=== PATIENT | female | born 1970 | race Caucasian/White ===

== ENCOUNTER → 2017-01-10 | Outpatient (CLI) | payer BC | LOC: MW.CHIM 08:07 | PROVIDERS: ATTEND Internal Medicine | DX: E78.5 Hyperlipidemia, unspecified (principal); D64.9 Anemia, unspecified | CPT/HCPCS: 36415; 80061; 83540; 85025 ==

== ENCOUNTER 2018-12-14 16:04 | Inpatient (IN) | payer BC ==
[2018-12-14] MEDS ORDERED: Sodium Chloride 0.9% 10 ML Syringe FLUSH PRN (16:13)
[2018-12-14] MEDS ORDERED: Sodium Chloride 0.9% 1,000 ML IV ONE (16:13)
[2018-12-14] MEDS ORDERED: Sodium Chloride 0.9% 2.5 ML Syringe FLUSH PRN (16:13)
--- NOTE | 2018-12-14 16:23 | EDM.PDOC ---
ED HPI GENERAL MEDICAL PROBLEM - General Chief Complaint: Abdominal Pain Stated Complaint: SENT BY DR COWAN Time Seen by Provider: 12/14/18 16:17 Source of Information: Reports: Patient History Limitations: Reports: No Limitations - History of Present Illness INITIAL COMMENTS - FREE TEXT/NARRATIVE: HISTORY AND PHYSICAL: History of present illness: Patient is a 48-year-old female who is sent over by Dr. Cowan's office for acute appendicitis. Patient has had pain since Tuesday night, she saw Dr. Cowan yesterday and had labs and was scheduled for CT scan. She states this CT scan never got done because they were too busy so she came in today for the scan. She had a minimally elevated white count at 12.6 yesterday. She states she has had low grade fevers. She denies nausea, vomiting, urinary or bowel symptoms. Past surgical history includes lap-band procedure and 2 c-sections. Past medical history of hyperlipidemia currently only taking a statin. She has taken some tylenol for her pain. She last ate last night, has been drinking water throughout the day today. Review of systems: As per history of present illness and below otherwise all systems reviewed and negative. Past medical history: As per history of present illness and as reviewed below otherwise noncontributory. Surgical history: As per history of present illness and as reviewed below otherwise noncontributory. Social history: No reported history of drug or alcohol abuse. Family history: As per history of present illness and as reviewed below otherwise noncontributory. Physical exam: General: Patient sitting comfortably in no acute distress and nontoxic appearing HEENT: Atraumatic, normocephalic, pupils reactive, negative for conjunctival pallor or scleral icterus, mucous membranes moist, throat clear, neck supple, nontender, trachea midline. No meningeal signs. Lungs: Clear to auscultation, breath sounds equal bilaterally, chest nontender. Heart: S1S2, regular, negative for clicks, rubs, or overt murmur. Abdomen: RLQ tenderness to palpation, positive Mcburney's and psoas sign. Soft, nondistended. Negative for masses or hepatosplenomegaly. Negative for costovertebral tenderness. No rigidity, rebound, guarding. Pelvis: Stable nontender. Genitourinary: Deferred. Rectal: Deferred. Extremities: Atraumatic, negative for cords or calf pain. Neurovascular unremarkable. Neuro: Awake, alert, oriented. Cranial nerves II through XII unremarkable. Cerebellum unremarkable. Motor and sensory unremarkable throughout. Exam nonfocal. Notes: Diagnostics: CBC, CMP Therapeutics: 1L Normal Saline IV Prescriptions: Impression: Acute appendicitis Plan: Discussed with Dr. Brooks, patient taken to same-day surgery. Definitive disposition and diagnosis as appropriate pending reevaluation and review of above. Right Lower Abdomen Pain Score (Numeric/FACES): 4 - Related Data Allergies Allergy/AdvReac Type Severity Reaction Status Date / Time No Known Allergies Allergy Verified 12/14/18 16:16 Home Meds: Home Meds Multivitamin [Multi-Vitamin Daily] 1 tab DAILY 12/14/18 [History] Simvastatin [Zocor] 1 tab DAILY 12/14/18 [History] ED ROS GENERAL - Review of Systems Review Of Systems: ROS reveals no pertinent complaints other than HPI. ED EXAM, GI/ABD - Physical Exam Exam: See Below (see dictation) Course - Vital Signs Last Recorded V/S: Last Vital Signs Temp 97.0 F 12/14/18 16:14 Pulse 110 H 12/14/18 16:14 Resp 18 12/14/18 16:14 BP 100/61 12/14/18 16:14 Pulse Ox 95 12/14/18 16:14 - Orders/Labs/Meds Orders: Active Orders 24 hr Category Date Time Status CBC WITH AUTO DIFF [HEME] Stat Lab 12/14/18 16:13 Ordered COMPREHENSIVE METABOLIC PN,CMP [CHEM] Stat Lab 12/14/18 16:13 Ordered Sodium Chloride 0.9% [Normal Saline] 1,000 ml Med 12/14/18 16:13 Ordered IV STAT Sodium Chloride 0.9% [Saline Flush] Med 12/14/18 16:13 Ordered 10 ml FLUSH ASDIRECTED PRN Sodium Chloride 0.9% [Saline Flush] Med 12/14/18 16:13 Ordered 2.5 ml FLUSH ASDIRECTED PRN Saline Lock Insert [OM.PC] Stat Oth 12/14/18 16:13 Ordered Medication Orders Sodium Chloride (Normal Saline) 1,000 mls @ 999 mls/hr IV STAT ONE Stop: 12/14/18 17:13 Sodium Chloride (Saline Flush) 10 ml FLUSH ASDIRECTED PRN PRN Reason: Keep Vein Open Sodium Chloride (Saline Flush) 2.5 ml FLUSH ASDIRECTED PRN PRN Reason: Keep Vein Open Meds: Medications Generic Name Dose Route Start Last Admin Trade Name Hammad PRN Reason Stop Dose Admin Sodium Chloride 1,000 mls @ 999 mls/hr 12/14/18 16:13 Normal Saline IV 12/14/18 17:13 STAT ONE Sodium Chloride 10 ml 12/14/18 16:13 Saline Flush FLUSH ASDIRECTED PRN Keep Vein Open Sodium Chloride 2.5 ml 12/14/18 16:13 Saline Flush FLUSH ASDIRECTED PRN Keep Vein Open Departure - Departure Time of Disposition: 16:37 Disposition: Still A Patient 30 Condition: Good Clinical Impression: Acute appendicitis - Discharge Information Referrals: Toby Cowan MD [Primary Care Provider] - Forms: ED Department Discharge - My Orders Last 24 Hours: My Active Orders 12/14/18 16:13 CBC WITH AUTO DIFF [HEME] Stat COMPREHENSIVE METABOLIC PN,CMP [CHEM] Stat Sodium Chloride 0.9% [Normal Saline] 1,000 ml IV STAT Sodium Chloride 0.9% [Saline Flush] 10 ml FLUSH ASDIRECTED PRN Sodium Chloride 0.9% [Saline Flush] 2.5 ml FLUSH ASDIRECTED PRN Saline Lock Insert [OM.PC] Stat - Assessment/Plan Last 24 Hours: My Active Orders 12/14/18 16:13 CBC WITH AUTO DIFF [HEME] Stat COMPREHENSIVE METABOLIC PN,CMP [CHEM] Stat Sodium Chloride 0.9% [Normal Saline] 1,000 ml IV STAT Sodium Chloride 0.9% [Saline Flush] 10 ml FLUSH ASDIRECTED PRN Sodium Chloride 0.9% [Saline Flush] 2.5 ml FLUSH ASDIRECTED PRN Saline Lock Insert [OM.PC] Stat
[2018-12-14] MEDS ORDERED: cefOXitin 2 GM in Premix Bag 1 BAG IV ONE (16:39)
[2018-12-14 16:56] LABS: CHLORIDE,CL 103 mmol/L (98-107); SODIUM,NA 138 mmol/L (136-145)
[2018-12-14] MEDS ORDERED: cefOXitin 2 GM in Sodium Chloride 0.9% 100 ML IV ONE (17:00)
--- NOTE | 2018-12-14 17:01 | PCM.SN ---
- Free Text/Narrative Note: pt seen, chart reviewed; acute appendicitis, would benefit from timely surgery; possibility of already ruptured, as pt felt better, and elevated wbc; appendectomy, lap vs open, rb dw pt re bleeding/infection/damage to nearby organ , and lap converted to open, postop course; pt voiced understanding, and proceed with surgery; [id number]
[2018-12-14] MEDS ORDERED: Bupivacaine 25%/EPINEPHrine/PF 30 ML ONE (17:12)
[2018-12-14] MEDS: Lactated Ringers 1,000 ML IV SCH ×2 (17:15→22:14)
--- NOTE | 2018-12-14 17:15 | PCM.PREANE ---
Preanesthetic Assessment - Anesthesia/Transfusion/Family Hx Family History of Anesthesia Reaction: No Transfusion History: Prior Transfusion Without Reaction - Review of Systems General: No Symptoms Pulmonary: No Symptoms Cardiovascular: No Symptoms Gastrointestinal: No Symptoms Neurological: No Symptoms Other: Reports: None - Physical Assessment NPO Status Date: 12/13/18 O2 Sat by Pulse Oximetry: 95 Respiratory Rate: 18 Vital Signs: Last Vital Signs Temp 36.1 C 12/14/18 16:14 Pulse 110 H 12/14/18 16:14 Resp 18 12/14/18 16:14 BP 100/61 12/14/18 16:14 Pulse Ox 95 12/14/18 16:14 Height: 1.6 m Weight: 128.6 kg ASA Class: 3E Mental Status: Alert & Oriented x3 Airway Class: Mallampati = 2 Dentition: Reports: Normal Dentition ROM/Head Extension: Full Lungs: Clear to Auscultation Cardiovascular: Regular Rate - Lab Values: Laboratory Last Values WBC 16.90 K/uL (4.0-11.0) H 12/14/18 16:27 RBC 4.46 M/uL (4.30-5.90) 12/14/18 16:27 Hgb 11.5 g/dL (12.0-16.0) L 12/14/18 16:27 Hct 36.9 % (36.0-46.0) 12/14/18 16:27 MCV 82.7 fL (80.0-98.0) 12/14/18 16:27 MCH 25.8 pg (27.0-32.0) L 12/14/18 16:27 MCHC 31.2 g/dL (31.0-37.0) 12/14/18 16:27 RDW Std Deviation 59.0 fl (28.0-62.0) 12/14/18 16:27 RDW Coeff of Alejandro 20 % (11.0-15.0) H 12/14/18 16:27 Plt Count 349 K/uL (150-400) 12/14/18 16:27 MPV 9.10 fL (7.40-12.00) 12/14/18 16:27 Neut % (Auto) 82.1 % (48.0-80.0) H 12/14/18 16:27 Lymph % (Auto) 9.1 % (16.0-40.0) L 12/14/18 16:27 [place] % (Auto) 7.8 % (0.0-15.0) 12/14/18 16:27 Eos % (Auto) 0.8 % (0.0-7.0) 12/14/18 16:27 Baso % (Auto) 0.2 % (0.0-1.5) 12/14/18 16:27 Neut # (Auto) 13.9 K/uL (1.4-5.7) H 12/14/18 16:27 Lymph # (Auto) 1.5 K/uL (0.6-2.4) 12/14/18 16:27 [place] # (Auto) 1.3 K/uL (0.0-0.8) H 12/14/18 16:27 Eos # (Auto) 0.1 K/uL (0.0-0.7) 12/14/18 16:27 Baso # (Auto) 0.0 K/uL (0.0-0.1) 12/14/18 16:27 Nucleated RBC % 0.0 /100WBC 12/14/18 16:27 Nucleated RBCs # 0 K/uL 12/14/18 16:27 Sodium 138 mmol/L (136-145) 12/14/18 16:27 Potassium 3.4 mmol/L (3.5-5.1) L 12/14/18 16:27 Chloride 103 mmol/L (98-107) 12/14/18 16:27 Carbon Dioxide 24.3 mmol/L (21.0-32.0) 12/14/18 16:27 BUN 8 mg/dL (7.0-18.0) 12/14/18 16:27 Creatinine 0.8 mg/dL (0.6-1.0) 12/14/18 16:27 Est Cr Clr Drug Dosing 69.59 mL/min 12/14/18 16:27 Estimated GFR (MDRD) > 60.0 ml/min 12/14/18 16:27 Glucose 125 mg/dL (74-106) H 12/14/18 16:27 Calcium 8.8 mg/dL (8.5-10.1) 12/14/18 16:27 Total Bilirubin 0.6 mg/dL (0.2-1.0) 12/14/18 16:27 AST 8 IU/L (15-37) L 12/14/18 16:27 ALT 25 IU/L (14-63) 12/14/18 16:27 Alkaline Phosphatase 94 U/L (46-116) 12/14/18 16:27 Total Protein 7.9 g/dL (6.4-8.2) 12/14/18 16:27 Albumin 3.4 g/dL (3.4-5.0) 12/14/18 16:27 Globulin 4.5 g/dL (2.6-4.0) H 12/14/18 16:27 Albumin/Globulin Ratio 0.8 (0.9-1.6) L 12/14/18 16:27 - Allergies Allergies/Adverse Reactions: Allergies Allergy/AdvReac Type Severity Reaction Status Date / Time No Known Allergies Allergy Verified 12/14/18 16:16 - Anesthesia Plan Free Text/Narrative:: ETT with RSI - Acknowledgements Anesthesia Type Planned: General Anesthesia Pt an Appropriate Candidate for the Planned Anesthesia: Yes Alternatives and Risks of Anesthesia Discussed w Pt/Guardian: Yes Pt/Guardian Understands and Agrees with Anesthesia Plan: Yes PreAnesthesia Questionnaire HEENT History: Reports: Impaired Vision Cardiovascular History: Reports: High Cholesterol Gastrointestinal History: Reports: Hiatal Hernia, Other (See Below) (states reflux has been gone since lap band removed) [employer]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 Needs to have an upper endoscopy. Has blood in stools occasionally), Other (See Below) ( hx blood clot in leg with nondisplaced fracture) - Infectious Disease History Infectious Disease History: Reports: Chicken Pox - Past Surgical History HEENT Surgical History: Reports: Adenoidectomy, Tonsillectomy GI Surgical History: Reports: Bariatric Procedure (lap band, lap band revision, lap band removal in 2016), Other (See Below) (colonoscopy) Female Surgical History: Reports: Section ( x 2) - SUBSTANCE USE Smoking Status *Q: Never Smoker Recreational Drug Use History: No - HOME MEDS Home Medications: Home Meds Multivitamin [Multi-Vitamin Daily] 1 tab DAILY 12/14/18 [History] Simvastatin [Zocor] 1 tab DAILY 12/14/18 [History] - CURRENT (IN HOUSE) MEDS Current Meds: Current Medications Sodium Chloride (Normal Saline) 1,000 mls @ 999 mls/hr IV STAT ONE Stop: 12/14/18 17:13 Last Admin: 12/14/18 16:25 Dose: 999 mls/hr Lactated Ringer's (Ringers, Lactated) 1,000 mls @ 150 mls/hr IV ASDIRECTED [facility] Cefoxitin Sodium 2 gm/ Sodium (Chloride) 100 mls @ 200 mls/hr IV ONETIME ONE Stop: 12/14/18 17:29 Last Admin: 12/14/18 16:55 Dose: 200 mls/hr Sodium Chloride (Saline Flush) 10 ml FLUSH ASDIRECTED PRN PRN Reason: Keep Vein Open Sodium Chloride (Saline Flush) 2.5 ml FLUSH ASDIRECTED PRN PRN Reason: Keep Vein Open Discontinued Medications Cefoxitin Sodium 2 gm/ Premix 50 mls @ 100 mls/hr IV ONETIME ONE Stop: 12/14/18 17:08
[2018-12-14] MEDS ORDERED: Propofol 200 MG/20 ML SDV ONE (17:21)
[2018-12-14] MEDS ORDERED: Midazolam 1 MG/ML 2 ML SDV ONE (17:22)
[2018-12-14] MEDS ORDERED: fentaNYL 250 MCG/5 ML SDV ONE (17:22)
[2018-12-14] MEDS ORDERED: Ondansetron 4 MG/2 ML SDV ONE (17:23)
[2018-12-14] MEDS ORDERED: Dexamethasone 4 MG/ML 5 ML MDV ONE (17:23)
[2018-12-14] MEDS ORDERED: Succinylcholine 200 MG/10 ML MDV ONE (17:24)
[2018-12-14] MEDS ORDERED: Rocuronium 10 MG/ML 10 ML Syringe ONE (17:24)
[2018-12-14] MEDS ORDERED: Phenylephrine/Normal Saline 100 MCG/ML 10 ML Syringe ONE (17:27)
[2018-12-14] MEDS ORDERED: ePHEDrine 50 MG/ML SDV ONE (17:27)
[2018-12-14] MEDS ORDERED: Glycopyrrolate 0.2 MG/ML SDV ONE (17:28)
[2018-12-14] MEDS ORDERED: Neostigmine Methylsulfate 1 MG/ML 5 ML Syringe ONE (17:28)
[2018-12-14] MEDS ORDERED: Sodium Chloride 0.9% 20 ML ONE (17:28)
[2018-12-14] MEDS ORDERED: Ketorolac 30 MG/ML SDV ONE (18:44)
--- NOTE | 2018-12-14 18:49 | CONS ---
DATE OF CONSULTATION: DATE OF : 1970 PRIMARY CARE PHYSICIAN: Toby Cowan CONCERNING QUESTION: Acute appendicitis. HISTORY OF PRESENT ILLNESS: The patient is a 48-year-old morbidly obese lady with a BMI of 50. She was seen two days ago in the office and subsequently CAT scan was ordered and it took two days and CAT scan showed acute appendicitis with dilated appendix, dirty fat, and no free air. The patient was called back to the emergency room and Surgery was then consulted. The patient remarked the pain as 5/10, slightly better than before, and has been hurting for 48 hours. Last meal was yesterday. ALLERGIES: Please refer to nursing for details. MEDICATIONS: Please refer to nursing for details. PAST MEDICAL HISTORY: Significant for BMI of 50, no diabetic, PA, CVA, hypertension. The patient has some anemia and is in the process of being worked up. PAST SURGICAL HISTORY: Lap band insertion and lap band removal, x2. FAMILY HISTORY: Noncontributory. REVIEW OF SYSTEMS: Same as history of present illness. PHYSICAL EXAMINATION: GENERAL: Upon examination, very present lady, smiled to the doctor, resting comfortably in bed. HEENT: Normocephalic and atraumatic. Sclerae anicteric. LUNGS: Clear to auscultation. HEART: Regular rate and rhythm. ABDOMEN: Soft, nondistended. No pulsating tender midline abdominal structure. Exquisite tenderness on the right lower quadrant. No radiation. Rovsing sign is negative. LABORATORY DATA: CAT scan of dilated appendix consistent with acute appendicitis, and white count was 17, up from 12 the day before. BUN and creatinine 0.8 IMPRESSION: Acute appendicitis. PLAN: The patient would benefit from timely surgery of appendectomy. With the patient's BMI, there is possibility of open appendectomy and the patient concurs and proceed w surg; risks involved, bleeding, infection, and damage to the nearby organ and perforated. The patient will need dressing change, and the patient was understanding, proceed with surgery. Given IV fluid, get a consent and put in 2 g IV Mefoxin. GRACY / MERVIN /[id number] REGINA
--- NOTE | 2018-12-14 20:25 | PCM.OPNOTE ---
- General Post-Op/Procedure Note Date of Surgery/Procedure: 12/14/18 Operative Procedure(s): lap appendectomy w drain placement Findings: near perforation necrotic appendicitis; [id number] Pre Op Diagnosis: acute appendicitis Post-Op Diagnosis: Same Anesthesia Technique: General ET Tube Primary Surgeon: Jose Brooks Pathology: sent Surgical Drain/Tube Type: Phu [place] Drain Complications: None Condition: Good
[2018-12-14] MEDS ORDERED: Ondansetron 4 MG/2 ML SDV IVPUSH PRN (20:28)
[2018-12-14] MEDS ORDERED: Morphine 4 MG/ML Syringe IVPUSH PRN (20:29)
[2018-12-14] MEDS ORDERED: fentaNYL 100 MCG/2 ML SDV IVPUSH PRN (20:37)
--- NOTE | 2018-12-14 21:04 | PCM.POSTAN ---
POST ANESTHESIA ASSESSMENT - MENTAL STATUS Mental Status: Alert (Patient feels ready to go to her room. O2 sats 94-95 on 4L. Continuous pulse ox ordered), Oriented - RESPIRATORY Respiratory Status: Respiratory Rate WNL, Airway Patent, O2 Saturation Stable - CARDIOVASCULAR CV Status: Pulse Rate WNL, Blood Pressure Stable - GASTROINTESTINAL GI Status: No Symptoms - POST OP HYDRATION Hydration Status: Adequate & Stable
[2018-12-14] MEDS: Acetaminophen/oxyCODONE 325-5 MG Tab PO PRN (21:59)
[2018-12-14] MEDS: cefOXitin 1 GM in Premix Bag 1 BAG IV SCH (22:13)
[2018-12-15] MEDS: cefOXitin 1 GM in Premix Bag 1 BAG IV SCH ×4 (03:03→20:30)
[2018-12-15] MEDS: Acetaminophen/oxyCODONE 325-5 MG Tab PO PRN ×4 (04:21→18:38)
[2018-12-15] MEDS: Lactated Ringers 1,000 ML IV SCH ×2 (07:46→16:54)
--- NOTE | 2018-12-15 10:30 | PCM48HPAN ---
Post Anesthesia Note - EVALUATION WITHIN 48HRS OF ANESTHETIC Vital Signs in Normal Range: Yes Patient Participated in Evaluation: Yes Respiratory Function Stable: Yes Airway Patent: Yes Cardiovascular Function Stable: Yes Hydration Status Stable: Yes Pain Control Satisfactory: Yes Nausea and Vomiting Control Satisfactory: Yes Mental Status Recovered: Yes Resp Rate: 17 - COMMENTS/OBSERVATIONS Free Text/Narrative:: Has been up walking and eating and drinking. States she just asked for another pain pill but doing ok.
[2018-12-16] MEDS: Lactated Ringers 1,000 ML IV SCH ×2 (01:19→10:08)
[2018-12-16] MEDS: Acetaminophen/oxyCODONE 325-5 MG Tab PO PRN ×3 (02:15→13:54)
[2018-12-16] MEDS: cefOXitin 1 GM in Premix Bag 1 BAG IV SCH ×4 (02:16→19:37)
[2018-12-16 09:22] LABS: CHLORIDE,CL 104 mmol/L (98-107); SODIUM,NA 140 mmol/L (136-145)
--- NOTE | 2018-12-16 11:40 | PCM.SURGPN ---
- General Info Date of Service: 12/15/18 POD#: 1 Functional Status: Reports: Pain Controlled - Review of Systems General: Reports: No Symptoms - Patient Data Vitals - Most Recent: Last Vital Signs Temp 97.6 F 12/16/18 07:35 Pulse 85 12/16/18 07:35 Resp 16 12/16/18 07:35 BP 114/62 12/16/18 07:35 Pulse Ox 94 L 12/16/18 07:35 Weight - Most Recent: 290 lb 12.8 oz I&O - Last 24 Hours: Intake & Output 12/15/18 12/16/18 12/16/18 22:59 06:59 14:59 Intake Total 2380 1392 Output Total 1500 502 Balance 880 890 Lab Results Last 24 Hrs: Laboratory Results - last 24 hr 12/16/18 12/16/18 Range/Units 08:55 08:55 WBC 12.27 H (4.0-11.0) K/uL RBC 3.85 L (4.30-5.90) M/uL Hgb 9.9 L (12.0-16.0) g/dL Hct 32.9 L (36.0-46.0) % MCV 85.5 (80.0-98.0) fL MCH 25.7 L (27.0-32.0) pg MCHC 30.1 L (31.0-37.0) g/dL RDW Std Deviation 62.6 H (28.0-62.0) fl RDW Coeff of Alejandro 20 H (11.0-15.0) % Plt Count 336 (150-400) K/uL MPV 9.40 (7.40-12.00) fL Neut % (Auto) 79.6 (48.0-80.0) % Lymph % (Auto) 12.0 L (16.0-40.0) % [place] % (Auto) 7.1 (0.0-15.0) % Eos % (Auto) 1.1 (0.0-7.0) % Baso % (Auto) 0.2 (0.0-1.5) % Neut # (Auto) 9.8 H (1.4-5.7) K/uL Lymph # (Auto) 1.5 (0.6-2.4) K/uL [place] # (Auto) 0.9 H (0.0-0.8) K/uL Eos # (Auto) 0.1 (0.0-0.7) K/uL Baso # (Auto) 0.0 (0.0-0.1) K/uL Nucleated RBC % 0.0 /100WBC Nucleated RBCs # 0 K/uL Sodium 140 (136-145) mmol/L Potassium 3.8 (3.5-5.1) mmol/L Chloride 104 (98-107) mmol/L Carbon Dioxide 28.9 (21.0-32.0) mmol/L BUN 9 (7.0-18.0) mg/dL Creatinine 0.8 (0.6-1.0) mg/dL Est Cr Clr Drug Dosing 69.59 mL/min Estimated GFR (MDRD) > 60.0 ml/min Glucose 167 H (74-106) mg/dL Calcium 8.6 (8.5-10.1) mg/dL Total Bilirubin 0.3 (0.2-1.0) mg/dL AST 8 L (15-37) IU/L ALT 19 (14-63) IU/L Alkaline Phosphatase 76 (46-116) U/L Total Protein 7.0 (6.4-8.2) g/dL Albumin 2.6 L (3.4-5.0) g/dL Globulin 4.4 H (2.6-4.0) g/dL Albumin/Globulin Ratio 0.6 L (0.9-1.6) Med Orders - Current: Current Medications Lactated Ringer's (Ringers, Lactated) 1,000 mls @ 150 mls/hr IV ASDIRECTED [facility] Last Admin: 12/16/18 10:08 Dose: 150 mls/hr Cefoxitin Sodium 1 gm/ Premix 50 mls @ 100 mls/hr IV Q6H [facility] Last Admin: 12/16/18 09:16 Dose: 100 mls/hr Lactated Ringer's (Ringers, Lactated) 1,000 mls @ 125 mls/hr IV ASDIRECTED [facility] Last Admin: 12/16/18 01:19 Dose: 125 mls/hr Morphine Sulfate (Morphine Sulfate) 4 mg IV Q4H PRN PRN Reason: Breakthrough Pain Last Admin: 12/15/18 21:57 Dose: 4 mg Ondansetron HCl (Zofran) 4 mg IVPUSH Q8H PRN PRN Reason: Nausea/Vomiting Oxycodone/Acetaminophen (Percocet 325-5 Mg) 1 tab PO Q4H PRN PRN Reason: Pain Last Admin: 12/16/18 07:00 Dose: 1 tab Sodium Chloride (Saline Flush) 10 ml FLUSH ASDIRECTED PRN PRN Reason: Keep Vein Open Sodium Chloride (Saline Flush) 2.5 ml FLUSH ASDIRECTED PRN PRN Reason: Keep Vein Open Discontinued Medications Dexamethasone (Dexamethasone) Confirm Administered Dose 20 mg .ROUTE .STK-MED ONE Stop: 12/14/18 17:24 Ephedrine Sulfate (Ephedrine Sulfate) Confirm Administered Dose 50 mg .ROUTE .STK-MED ONE Stop: 12/14/18 17:28 Fentanyl (Sublimaze) Confirm Administered Dose 250 mcg .ROUTE .STK-MED ONE Stop: 12/14/18 17:23 Fentanyl (Sublimaze) 50 mcg IVPUSH Q5M PRN PRN Reason: Pain (severe 7-10) Stop: 12/14/18 22:00 Last Admin: 12/14/18 20:50 Dose: 50 mcg Glycopyrrolate (Robinul) Confirm Administered Dose 0.6 mg .ROUTE .STK-MED ONE Stop: 12/14/18 17:29 Sodium Chloride (Normal Saline) 1,000 mls @ 999 mls/hr IV STAT ONE Stop: 12/14/18 17:13 Last Admin: 12/14/18 16:25 Dose: 999 mls/hr Cefoxitin Sodium 2 gm/ Premix 50 mls @ 100 mls/hr IV ONETIME ONE Stop: 12/14/18 17:08 Last Admin: 12/14/18 23:43 Dose: Not Given Cefoxitin Sodium 2 gm/ Sodium (Chloride) 100 mls @ 200 mls/hr IV ONETIME ONE Stop: 12/14/18 17:29 Last Admin: 12/14/18 16:55 Dose: 200 mls/hr Bupivacaine HCl/Epinephrine Bitart (Sensorc Mpf 0.25%-Epi [id number]) Confirm Administered Dose 30 mls @ as directed .ROUTE .STK-MED ONE Stop: 12/14/18 17:13 Lidocaine HCl (Xylocaine-Mpf 1%) Confirm Administered Dose 5 mls @ as directed .ROUTE .STK-MED ONE Stop: 12/14/18 17:24 Sodium Chloride (Normal Saline) Confirm Administered Dose 20 mls @ as directed .ROUTE .STK-MED ONE Stop: 12/14/18 17:29 Acetaminophen (Ofirmev) Confirm Administered Dose 100 mls @ as directed IV .STK- MED ONE Stop: 12/14/18 17:31 Ketorolac Tromethamine (Toradol) Confirm Administered Dose 30 mg .ROUTE .STK- MED ONE Stop: 12/14/18 18:45 Midazolam HCl (Versed 1 Mg/Ml) Confirm Administered Dose 2 mg .ROUTE .STK-MED ONE Stop: 12/14/18 17:23 Morphine Sulfate (Morphine) 4 mg IVPUSH Q4H PRN PRN Reason: Breakthrough Pain Neostigmine Methylsulfate (Neostigmine) Confirm Administered Dose 5 mg .ROUTE .STK-MED ONE Stop: 12/14/18 17:29 Ondansetron HCl (Zofran) Confirm Administered Dose 4 mg .ROUTE .STK-MED ONE Stop: 12/14/18 17:24 Phenylephrine HCl (Phenylephrine In Ns 100 Mcg/Ml) Confirm Administered Dose 1 mg .ROUTE .STK-MED ONE Stop: 12/14/18 17:28 Propofol (Diprivan 20 Ml) Confirm Administered Dose 400 mg .ROUTE .STK-MED ONE Stop: 12/14/18 17:22 Rocuronium [place] (Zemuron) Confirm Administered Dose 100 mg .ROUTE .STK-MED ONE Stop: 12/14/18 17:25 Succinylcholine Chloride (Quelicin) Confirm Administered Dose 200 mg .ROUTE .STK -MED ONE Stop: 12/14/18 17:25 - Exam GI/Abdominal Exam: Soft, No Distention (wound cdi) - Problem List Review Problem List Initiated/Reviewed/Updated: Yes - My Orders Last 24 Hours: Medication Orders Lactated Ringer's (Ringers, Lactated) 1,000 mls @ 150 mls/hr IV ASDIRECTED [facility] Last Admin: 12/16/18 10:08 Dose: 150 mls/hr Infusion: 12/14/18 23:56 Dose: 150 mls/hr Admin: 12/14/18 17:15 Dose: 150 mls/hr Cefoxitin Sodium 1 gm/ Premix 50 mls @ 100 mls/hr IV Q6H [facility] Last Admin: 12/16/18 09:16 Dose: 100 mls/hr Infusion: 12/16/18 02:46 Dose: 100 mls/hr Admin: 12/16/18 02:16 Dose: 100 mls/hr Infusion: 12/15/18 21:00 Dose: 100 mls/hr Admin: 12/15/18 20:30 Dose: 100 mls/hr Infusion: 12/15/18 15:09 Dose: 100 mls/hr Admin: 12/15/18 14:39 Dose: 100 mls/hr Infusion: 12/15/18 10:08 Dose: 100 mls/hr Admin: 12/15/18 09:38 Dose: 100 mls/hr Infusion: 12/15/18 03:33 Dose: 100 mls/hr Admin: 12/15/18 03:03 Dose: 100 mls/hr Infusion: 12/14/18 22:43 Dose: 100 mls/hr Admin: 12/14/18 22:13 Dose: 100 mls/hr Lactated Ringer's (Ringers, Lactated) 1,000 mls @ 125 mls/hr IV ASDIRECTED [facility] Last Admin: 12/16/18 01:19 Dose: 125 mls/hr Infusion: 12/16/18 00:54 Dose: 125 mls/hr Admin: 12/15/18 16:54 Dose: 125 mls/hr Infusion: 12/15/18 15:46 Dose: 125 mls/hr Admin: 12/15/18 07:46 Dose: 125 mls/hr Infusion: 12/15/18 06:14 Dose: 125 mls/hr Admin: 12/14/18 22:14 Dose: 125 mls/hr Morphine Sulfate (Morphine Sulfate) 4 mg IV Q4H PRN PRN Reason: Breakthrough Pain Last Admin: 12/15/18 21:57 Dose: 4 mg Admin: 12/15/18 11:26 Dose: 4 mg Admin: 12/15/18 00:40 Dose: 4 mg Ondansetron HCl (Zofran) 4 mg IVPUSH Q8H PRN PRN Reason: Nausea/Vomiting Oxycodone/Acetaminophen (Percocet 325-5 Mg) 1 tab PO Q4H PRN PRN Reason: Pain Last Admin: 12/16/18 07:00 Dose: 1 tab Admin: 12/16/18 02:15 Dose: 1 tab Admin: 12/15/18 18:38 Dose: 1 tab Admin: 12/15/18 14:38 Dose: 1 tab Admin: 12/15/18 09:24 Dose: 1 tab Admin: 12/15/18 04:21 Dose: 1 tab Admin: 12/14/18 21:59 Dose: 1 tab Sodium Chloride (Saline Flush) 10 ml FLUSH ASDIRECTED PRN PRN Reason: Keep Vein Open Sodium Chloride (Saline Flush) 2.5 ml FLUSH ASDIRECTED PRN PRN Reason: Keep Vein Open - Assessment Assessment (Free Text/Narrative):: doing well, continue iv abx, check blood work tomorrow - Plan Plan (Free Text/Narrative):: doing well, continue iv abx, check blood work tomorrow
[2018-12-16] MEDS ORDERED: Bisacodyl 10 MG Supp RECTAL ONE (11:58)
--- NOTE | 2018-12-16 11:58 | PCM.SURGPN ---
- General Info Date of Service: 12/16/18 Functional Status: Reports: Pain Controlled - Review of Systems General: Reports: No Symptoms Genitourinary: Reports: No Symptoms (did not pass gas) - Patient Data Vitals - Most Recent: Last Vital Signs Temp 97.6 F 12/16/18 07:35 Pulse 85 12/16/18 07:35 Resp 16 12/16/18 07:35 BP 114/62 12/16/18 07:35 Pulse Ox 94 L 12/16/18 07:35 Weight - Most Recent: 290 lb 12.8 oz I&O - Last 24 Hours: Intake & Output 12/15/18 12/16/18 12/16/18 22:59 06:59 14:59 Intake Total 2380 1392 Output Total 1500 502 Balance 880 890 Lab Results Last 24 Hrs: Laboratory Results - last 24 hr 12/16/18 12/16/18 Range/Units 08:55 08:55 WBC 12.27 H (4.0-11.0) K/uL RBC 3.85 L (4.30-5.90) M/uL Hgb 9.9 L (12.0-16.0) g/dL Hct 32.9 L (36.0-46.0) % MCV 85.5 (80.0-98.0) fL MCH 25.7 L (27.0-32.0) pg MCHC 30.1 L (31.0-37.0) g/dL RDW Std Deviation 62.6 H (28.0-62.0) fl RDW Coeff of Alejandro 20 H (11.0-15.0) % Plt Count 336 (150-400) K/uL MPV 9.40 (7.40-12.00) fL Neut % (Auto) 79.6 (48.0-80.0) % Lymph % (Auto) 12.0 L (16.0-40.0) % Hendry % (Auto) 7.1 (0.0-15.0) % Eos % (Auto) 1.1 (0.0-7.0) % Baso % (Auto) 0.2 (0.0-1.5) % Neut # (Auto) 9.8 H (1.4-5.7) K/uL Lymph # (Auto) 1.5 (0.6-2.4) K/uL Hendry # (Auto) 0.9 H (0.0-0.8) K/uL Eos # (Auto) 0.1 (0.0-0.7) K/uL Baso # (Auto) 0.0 (0.0-0.1) K/uL Nucleated RBC % 0.0 /100WBC Nucleated RBCs # 0 K/uL Sodium 140 (136-145) mmol/L Potassium 3.8 (3.5-5.1) mmol/L Chloride 104 (98-107) mmol/L Carbon Dioxide 28.9 (21.0-32.0) mmol/L BUN 9 (7.0-18.0) mg/dL Creatinine 0.8 (0.6-1.0) mg/dL Est Cr Clr Drug Dosing 69.59 mL/min Estimated GFR (MDRD) > 60.0 ml/min Glucose 167 H (74-106) mg/dL Calcium 8.6 (8.5-10.1) mg/dL Total Bilirubin 0.3 (0.2-1.0) mg/dL AST 8 L (15-37) IU/L ALT 19 (14-63) IU/L Alkaline Phosphatase 76 (46-116) U/L Total Protein 7.0 (6.4-8.2) g/dL Albumin 2.6 L (3.4-5.0) g/dL Globulin 4.4 H (2.6-4.0) g/dL Albumin/Globulin Ratio 0.6 L (0.9-1.6) Med Orders - Current: Current Medications Docusate Sodium (Colace) 100 mg PO DAILY [facility] Lactated Ringer's (Ringers, Lactated) 1,000 mls @ 150 mls/hr IV ASDIRECTED [facility] Last Admin: 12/16/18 10:08 Dose: 150 mls/hr Cefoxitin Sodium 1 gm/ Premix 50 mls @ 100 mls/hr IV Q6H [facility] Last Admin: 12/16/18 09:16 Dose: 100 mls/hr Lactated Ringer's (Ringers, Lactated) 1,000 mls @ 125 mls/hr IV ASDIRECTED [facility] Last Admin: 12/16/18 01:19 Dose: 125 mls/hr Morphine Sulfate (Morphine Sulfate) 4 mg IV Q4H PRN PRN Reason: Breakthrough Pain Last Admin: 12/15/18 21:57 Dose: 4 mg Ondansetron HCl (Zofran) 4 mg IVPUSH Q8H PRN PRN Reason: Nausea/Vomiting Oxycodone/Acetaminophen (Percocet 325-5 Mg) 1 tab PO Q4H PRN PRN Reason: Pain Last Admin: 12/16/18 07:00 Dose: 1 tab Sodium Chloride (Saline Flush) 10 ml FLUSH ASDIRECTED PRN PRN Reason: Keep Vein Open Sodium Chloride (Saline Flush) 2.5 ml FLUSH ASDIRECTED PRN PRN Reason: Keep Vein Open Discontinued Medications Dexamethasone (Dexamethasone) Confirm Administered Dose 20 mg .ROUTE .STK-MED ONE Stop: 12/14/18 17:24 Ephedrine Sulfate (Ephedrine Sulfate) Confirm Administered Dose 50 mg .ROUTE .STK-MED ONE Stop: 12/14/18 17:28 Fentanyl (Sublimaze) Confirm Administered Dose 250 mcg .ROUTE .STK-MED ONE Stop: 12/14/18 17:23 Fentanyl (Sublimaze) 50 mcg IVPUSH Q5M PRN PRN Reason: Pain (severe 7-10) Stop: 12/14/18 22:00 Last Admin: 12/14/18 20:50 Dose: 50 mcg Glycopyrrolate (Robinul) Confirm Administered Dose 0.6 mg .ROUTE .STK-MED ONE Stop: 12/14/18 17:29 Sodium Chloride (Normal Saline) 1,000 mls @ 999 mls/hr IV STAT ONE Stop: 12/14/18 17:13 Last Admin: 12/14/18 16:25 Dose: 999 mls/hr Cefoxitin Sodium 2 gm/ Premix 50 mls @ 100 mls/hr IV ONETIME ONE Stop: 12/14/18 17:08 Last Admin: 12/14/18 23:43 Dose: Not Given Cefoxitin Sodium 2 gm/ Sodium (Chloride) 100 mls @ 200 mls/hr IV ONETIME ONE Stop: 12/14/18 17:29 Last Admin: 12/14/18 16:55 Dose: 200 mls/hr Bupivacaine HCl/Epinephrine Bitart (Sensorc Mpf 0.25%-Epi 1:[id number]) Confirm Administered Dose 30 mls @ as directed .ROUTE .STK-MED ONE Stop: 12/14/18 17:13 Lidocaine HCl (Xylocaine-Mpf 1%) Confirm Administered Dose 5 mls @ as directed .ROUTE .STK-MED ONE Stop: 12/14/18 17:24 Sodium Chloride (Normal Saline) Confirm Administered Dose 20 mls @ as directed .ROUTE .STK-MED ONE Stop: 12/14/18 17:29 Acetaminophen (Ofirmev) Confirm Administered Dose 100 mls @ as directed IV .STK- MED ONE Stop: 12/14/18 17:31 Ketorolac Tromethamine (Toradol) Confirm Administered Dose 30 mg .ROUTE .STK- MED ONE Stop: 12/14/18 18:45 Midazolam HCl (Versed 1 Mg/Ml) Confirm Administered Dose 2 mg .ROUTE .STK-MED ONE Stop: 12/14/18 17:23 Morphine Sulfate (Morphine) 4 mg IVPUSH Q4H PRN PRN Reason: Breakthrough Pain Neostigmine Methylsulfate (Neostigmine) Confirm Administered Dose 5 mg .ROUTE .STK-MED ONE Stop: 12/14/18 17:29 Ondansetron HCl (Zofran) Confirm Administered Dose 4 mg .ROUTE .STK-MED ONE Stop: 12/14/18 17:24 Phenylephrine HCl (Phenylephrine In Ns 100 Mcg/Ml) Confirm Administered Dose 1 mg .ROUTE .STK-MED ONE Stop: 12/14/18 17:28 Propofol (Diprivan 20 Ml) Confirm Administered Dose 400 mg .ROUTE .STK-MED ONE Stop: 12/14/18 17:22 Rocuronium [place] (Zemuron) Confirm Administered Dose 100 mg .ROUTE .STK-MED ONE Stop: 12/14/18 17:25 Succinylcholine Chloride (Quelicin) Confirm Administered Dose 200 mg .ROUTE .STK -MED ONE Stop: 12/14/18 17:25 - Exam GI/Abdominal Exam: Normal Bowel Sounds (wound cdi w drsg), Soft, No Distention - Problem List Review Problem List Initiated/Reviewed/Updated: Yes - My Orders Last 24 Hours: Active Orders 24 hr Category Date Time Status Docusate Sodium [Colace] Med 12/17/18 09:00 Ordered 100 mg PO DAILY Medication Orders Docusate Sodium (Colace) 100 mg PO DAILY [facility] Lactated Ringer's (Ringers, Lactated) 1,000 mls @ 150 mls/hr IV ASDIRECTED [facility] Last Admin: 12/16/18 10:08 Dose: 150 mls/hr Infusion: 12/14/18 23:56 Dose: 150 mls/hr Admin: 12/14/18 17:15 Dose: 150 mls/hr Cefoxitin Sodium 1 gm/ Premix 50 mls @ 100 mls/hr IV Q6H [facility] Last Admin: 12/16/18 09:16 Dose: 100 mls/hr Infusion: 12/16/18 02:46 Dose: 100 mls/hr Admin: 12/16/18 02:16 Dose: 100 mls/hr Infusion: 12/15/18 21:00 Dose: 100 mls/hr Admin: 12/15/18 20:30 Dose: 100 mls/hr Infusion: 12/15/18 15:09 Dose: 100 mls/hr Admin: 12/15/18 14:39 Dose: 100 mls/hr Infusion: 12/15/18 10:08 Dose: 100 mls/hr Admin: 12/15/18 09:38 Dose: 100 mls/hr Infusion: 12/15/18 03:33 Dose: 100 mls/hr Admin: 12/15/18 03:03 Dose: 100 mls/hr Infusion: 12/14/18 22:43 Dose: 100 mls/hr Admin: 12/14/18 22:13 Dose: 100 mls/hr Lactated Ringer's (Ringers, Lactated) 1,000 mls @ 125 mls/hr IV ASDIRECTED [facility] Last Admin: 12/16/18 01:19 Dose: 125 mls/hr Infusion: 12/16/18 00:54 Dose: 125 mls/hr Admin: 12/15/18 16:54 Dose: 125 mls/hr Infusion: 12/15/18 15:46 Dose: 125 mls/hr Admin: 12/15/18 07:46 Dose: 125 mls/hr Infusion: 12/15/18 06:14 Dose: 125 mls/hr Admin: 12/14/18 22:14 Dose: 125 mls/hr Morphine Sulfate (Morphine Sulfate) 4 mg IV Q4H PRN PRN Reason: Breakthrough Pain Last Admin: 12/15/18 21:57 Dose: 4 mg Admin: 12/15/18 11:26 Dose: 4 mg Admin: 12/15/18 00:40 Dose: 4 mg Ondansetron HCl (Zofran) 4 mg IVPUSH Q8H PRN PRN Reason: Nausea/Vomiting Oxycodone/Acetaminophen (Percocet 325-5 Mg) 1 tab PO Q4H PRN PRN Reason: Pain Last Admin: 12/16/18 07:00 Dose: 1 tab Admin: 12/16/18 02:15 Dose: 1 tab Admin: 12/15/18 18:38 Dose: 1 tab Admin: 12/15/18 14:38 Dose: 1 tab Admin: 12/15/18 09:24 Dose: 1 tab Admin: 12/15/18 04:21 Dose: 1 tab Admin: 12/14/18 21:59 Dose: 1 tab Sodium Chloride (Saline Flush) 10 ml FLUSH ASDIRECTED PRN PRN Reason: Keep Vein Open Sodium Chloride (Saline Flush) 2.5 ml FLUSH ASDIRECTED PRN PRN Reason: Keep Vein Open - Assessment Assessment (Free Text/Narrative):: doing well, still taking pain meds every 4 hrs; no flatus; change pain meds to q6, dulcolax, colace; possible home tomorrow - Plan Plan (Free Text/Narrative):: doing well, still taking pain meds every 4 hrs; no flatus; change pain meds to q6, dulcolax, colace; possible home tomorrow
[2018-12-17] MEDS: Acetaminophen/oxyCODONE 325-5 MG Tab PO PRN ×2 (01:16→08:32)
[2018-12-17] MEDS: cefOXitin 1 GM in Premix Bag 1 BAG IV SCH ×2 (02:04→08:32)
[2018-12-17] MEDS ORDERED: Docusate Sodium 100 MG Cap PO SCH (09:00)
--- NOTE | 2018-12-17 09:41 | PCM.SURGPN ---
- General Info Date of Service: 12/17/18 Functional Status: Reports: Pain Controlled (co headache, BM X 1 yesterday; voided; elena po) - Patient Data Vitals - Most Recent: Last Vital Signs Temp 98.1 F 12/17/18 07:15 Pulse 95 12/17/18 07:15 Resp 16 12/17/18 07:15 BP 117/56 L 12/17/18 07:15 Pulse Ox 95 12/17/18 07:15 Weight - Most Recent: 291 lb 9.6 oz I&O - Last 24 Hours: Intake & Output 12/16/18 12/17/18 12/17/18 22:59 06:59 14:59 Intake Total 2372 670 Output Total 154 901 Balance 1870 -231 Med Orders - Current: Current Medications Docusate Sodium (Colace) 100 mg PO DAILY [facility] Last Admin: 12/17/18 08:32 Dose: 100 mg Cefoxitin Sodium 1 gm/ Premix 50 mls @ 100 mls/hr IV Q6H [facility] Last Admin: 12/17/18 08:32 Dose: 100 mls/hr Morphine Sulfate (Morphine Sulfate) 4 mg IV Q6H PRN PRN Reason: Breakthrough Pain Last Admin: 12/16/18 19:33 Dose: 4 mg Ondansetron HCl (Zofran) 4 mg IVPUSH Q8H PRN PRN Reason: Nausea/Vomiting Oxycodone/Acetaminophen (Percocet 325-5 Mg) 1 tab PO Q6H PRN PRN Reason: Pain Last Admin: 12/17/18 08:32 Dose: 1 tab Sodium Chloride (Saline Flush) 10 ml FLUSH ASDIRECTED PRN PRN Reason: Keep Vein Open Sodium Chloride (Saline Flush) 2.5 ml FLUSH ASDIRECTED PRN PRN Reason: Keep Vein Open Discontinued Medications Bisacodyl (Dulcolax) 10 mg RECTAL ONETIME ONE Stop: 12/16/18 11:59 Last Admin: 12/16/18 12:35 Dose: 10 mg Dexamethasone (Dexamethasone) Confirm Administered Dose 20 mg .ROUTE .STK-MED ONE Stop: 12/14/18 17:24 Ephedrine Sulfate (Ephedrine Sulfate) Confirm Administered Dose 50 mg .ROUTE .STK-MED ONE Stop: 12/14/18 17:28 Fentanyl (Sublimaze) Confirm Administered Dose 250 mcg .ROUTE .STK-MED ONE Stop: 12/14/18 17:23 Fentanyl (Sublimaze) 50 mcg IVPUSH Q5M PRN PRN Reason: Pain (severe 7-10) Stop: 12/14/18 22:00 Last Admin: 12/14/18 20:50 Dose: 50 mcg Glycopyrrolate (Robinul) Confirm Administered Dose 0.6 mg .ROUTE .STK-MED ONE Stop: 12/14/18 17:29 Sodium Chloride (Normal Saline) 1,000 mls @ 999 mls/hr IV STAT ONE Stop: 12/14/18 17:13 Last Admin: 12/14/18 16:25 Dose: 999 mls/hr Cefoxitin Sodium 2 gm/ Premix 50 mls @ 100 mls/hr IV ONETIME ONE Stop: 12/14/18 17:08 Last Admin: 12/14/18 23:43 Dose: Not Given Lactated Ringer's (Ringers, Lactated) 1,000 [facility]ls [facility] Admin: 12/16/18 10:08 Dose: 150 mls/hr Cefoxitin Sodium 2 gm/ Sodium (Chloride) 100 mls @ 200 mls/hr IV ONETIME ONE Stop: 12/14/18 17:29 Last Admin: 12/14/18 16:55 Dose: 200 mls/hr Bupivacaine HCl/Epinephrine Bitart (Sensorc Mpf 0.25%-Epi 1:[id number]) Confirm Administered Dose 30 mls @ as directed .ROUTE .STK-MED ONE Stop: 12/14/18 17:13 Lidocaine HCl (Xylocaine-Mpf 1%) Confirm Administered Dose 5 mls @ as directed .ROUTE .STK-MED ONE Stop: 12/14/18 17:24 Sodium Chloride (Normal Saline) Confirm Administered Dose 20 mls @ as directed .ROUTE .STK-MED ONE Stop: 12/14/18 17:29 Acetaminophen (Ofirmev) Confirm Administered Dose 100 mls @ as directed IV .STK- MED ONE Stop: 12/14/18 17:31 Lactated Ringer's (Ringers, Lactated) 1,000 mls @ [facility] Admin: 12/16/18 01:19 Dose: 125 mls/hr Ketorolac Tromethamine (Toradol) Confirm Administered Dose 30 mg .ROUTE .STK- MED ONE Stop: 12/14/18 18:45 Midazolam HCl (Versed 1 Mg/Ml) Confirm Administered Dose 2 mg .ROUTE .STK-MED ONE Stop: 12/14/18 17:23 Morphine Sulfate (Morphine) 4 mg IVPUSH Q4H PRN PRN Reason: Breakthrough Pain Morphine Sulfate (Morphine Sulfate) 4 mg IV Q4H PRN PRN Reason: Breakthrough Pain Last Admin: 12/15/18 21:57 Dose: 4 mg Neostigmine Methylsulfate (Neostigmine) Confirm Administered Dose 5 mg .ROUTE .STK-MED ONE Stop: 12/14/18 17:29 Ondansetron HCl (Zofran) Confirm Administered Dose 4 mg .ROUTE .STK-MED ONE Stop: 12/14/18 17:24 Oxycodone/Acetaminophen (Percocet 325-5 Mg) 1 tab PO Q4H PRN PRN Reason: Pain Last Admin: 12/16/18 07:00 Dose: 1 tab Phenylephrine HCl (Phenylephrine In Ns 100 Mcg/Ml) Confirm Administered Dose 1 mg .ROUTE .STK-MED ONE Stop: 12/14/18 17:28 Propofol (Diprivan 20 Ml) Confirm Administered Dose 400 mg .ROUTE .STK-MED ONE Stop: 12/14/18 17:22 Rocuronium [place] (Zemuron) Confirm Administered Dose 100 mg .ROUTE .STK-MED ONE Stop: 12/14/18 17:25 Succinylcholine Chloride (Quelicin) Confirm Administered Dose 200 mg .ROUTE .STK -MED ONE Stop: 12/14/18 17:25 - Exam GI/Abdominal Exam: Normal Bowel Sounds, Soft, No Distention (wound cdi; samuel output scanty) - Problem List Review Problem List Initiated/Reviewed/Updated: Yes - My Orders Last 24 Hours: Active Orders 24 hr Category Date Time Status Ready for Discharge [RC] PER UNIT ROUTINE Care 12/16/18 12:02 Active Regular Diet [DIET] Diet 12/17/18 Breakfast Active Acetaminophen/oxyCODONE [Percocet 325-5 MG] Med 12/16/18 12:02 Active 1 tab PO Q6H PRN Docusate Sodium [Colace] Med 12/17/18 09:00 Active 100 mg PO DAILY Morphine Sulfate Med 12/16/18 12:01 Active 4 mg IV Q6H PRN Resuscitation Status Routine Resus Stat 12/16/18 17:31 Ordered Medication Orders Docusate Sodium (Colace) 100 mg PO DAILY [facility] Last Admin: 12/17/18 08:32 Dose: 100 mg Cefoxitin Sodium 1 gm/ Premix 50 mls @ 100 mls/hr IV Q6H [facility] Last Admin: 12/17/18 08:32 Dose: 100 mls/hr Infusion: 12/17/18 02:34 Dose: 100 mls/hr Admin: 12/17/18 02:04 Dose: 100 mls/hr Infusion: 12/16/18 20:07 Dose: 100 mls/hr Admin: 12/16/18 19:37 Dose: 100 mls/hr Infusion: 12/16/18 14:24 Dose: 100 mls/hr Admin: 12/16/18 13:54 Dose: 100 mls/hr Infusion: 12/16/18 09:46 Dose: 100 mls/hr Admin: 12/16/18 09:16 Dose: 100 mls/hr Infusion: 12/16/18 02:46 Dose: 100 mls/hr Admin: 12/16/18 02:16 Dose: 100 mls/hr Infusion: 12/15/18 21:00 Dose: 100 mls/hr Admin: 12/15/18 20:30 Dose: 100 mls/hr Infusion: 12/15/18 15:09 Dose: 100 mls/hr Admin: 12/15/18 14:39 Dose: 100 mls/hr Infusion: 12/15/18 10:08 Dose: 100 mls/hr Admin: 12/15/18 09:38 Dose: 100 mls/hr Infusion: 12/15/18 03:33 Dose: 100 mls/hr Admin: 12/15/18 03:03 Dose: 100 mls/hr Infusion: 12/14/18 22:43 Dose: 100 mls/hr Admin: 12/14/18 22:13 Dose: 100 mls/hr Morphine Sulfate (Morphine Sulfate) 4 mg IV Q6H PRN PRN Reason: Breakthrough Pain Last Admin: 12/16/18 19:33 Dose: 4 mg Ondansetron HCl (Zofran) 4 mg IVPUSH Q8H PRN PRN Reason: Nausea/Vomiting Oxycodone/Acetaminophen (Percocet 325-5 Mg) 1 tab PO Q6H PRN PRN Reason: Pain Last Admin: 12/17/18 08:32 Dose: 1 tab Admin: 12/17/18 01:16 Dose: 1 tab Admin: 12/16/18 13:54 Dose: 1 tab Sodium Chloride (Saline Flush) 10 ml FLUSH ASDIRECTED PRN PRN Reason: Keep Vein Open Sodium Chloride (Saline Flush) 2.5 ml FLUSH ASDIRECTED PRN PRN Reason: Keep Vein Open - Assessment Assessment (Free Text/Narrative):: doing much better, headache; recommend tylenol extra strength; tuesday - Plan Plan (Free Text/Narrative):: doing much better, headache; recommend tylenol extra strength; tuesday
--- NOTE | 2018-12-18 13:49 | OR ---
SURGEON: Jose Brooks MD DATE OF PROCEDURE: 12/14/2018 PREOPERATIVE DIAGNOSIS: Acute appendicitis. POSTOPERATIVE DIAGNOSES: Near perforation, necrotic appendicitis. PROCEDURE PERFORMED: Laparoscopic appendectomy with drain placement and Surgicel placement. COMPLICATION: None. FINDINGS: The appendix is completely scarred down, forming like a pancake on top of the terminal ileum and cecum, and required tremendous amount of effort to gently free the appendix. The appendix is hyperemic at the distal one half and necrotic with near perforation at the proximal one half. The base of the appendix is normal. PROCEDURE IN DETAIL: The patient was taken to the operating room and placed in the supine position. Upon induction of general endotracheal anesthesia, the patient was prepped and draped in sterile fashion. Time-out was being called, patient identified, procedure identified, antibiotic given, 2 grams IV Mefoxin, at the start. After assessment of the patient's landmark, a supraumbilical incision was made, and using Sung technique, a 12 mm trocar was placed supraumbilically, and pneumoperitoneum was accomplished, followed with the placement of a 5 mm trocar at the right upper quadrant and another 5 mm trocar in the suprapubic. Upon gaining entrance into the peritoneal cavity, immediately noted was a pancake; the terminal ileum, cecum, and tubular structure are all encompassed into like a pancake. Dissected out the structure very carefully and able to find the base of the appendix. It looked like the distal half of the appendix is hyperemic and swollen, and the proximal half near the right at the midway, there is a near perforation, necrotic point, but the base of appendix is healthy, looked like well perfused. While we were watching the appendix, the near perforation spot opened up, and stool is coming out. This was then countered with immediate irrigation. Using a GI stapler, the appendix was amputated at base and followed with Harmonic Scalpel and more stapler refillers, and the mesoappendix was amputated. The appendix was then removed from the field and sent for pathology. This was then followed by copious irrigation, Surgicel was placed for hemostasis, a 10 flat CHERELLE drain was inserted in the lower suprapubic port site, and the umbilical site was closed with 2-0 Vicryl, followed with skin keaton approximating the skin, and the two other trocars were also closed with skin keaton. The lower port site was using 0 silk to anchor the drain to the skin, followed by appropriate dressings. The patient was awakened, extubated, and transferred to recovery room in hemodynamically stable condition. With the patient's body habitus, morbidly obese with BMI of 52, the patient is at risk for developing intraabdominal abscess. A drain was placed to monitor progress, and the patient should be on IV antibiotic, and follow up with at least 7 days p.o. antibiotic when sent home. GRACY / MERVIN /[id number]
== END 2018-12-17 10:40 | disposition home or self-care (01) | DRG 233 ==
LOC: MW.ED 16:04 → MW.SDS 16:45 → MW.MS 18:57 → MW.SDS 20:25 → MW.MS 12-15 06:29
PROVIDERS: ADMIT Surgery; ATTEND Surgery
PROC: 0DTJ4ZZ Resection of Appendix, Percutaneous Endoscopic Approach (ICD-10-PCS; principal; 2018-12-14)
DX: K35.32 Acute appendicitis with perforation, localized peritonitis, and gangrene, without abscess (principal); E66.01 Morbid (severe) obesity due to excess calories; Z68.43 Body mass index [BMI] 50.0-59.9, adult; E78.5 Hyperlipidemia, unspecified; D64.9 Anemia, unspecified; E78.00 Pure hypercholesterolemia, unspecified; H54.7 Unspecified visual loss; Z98.84 Bariatric surgery status; Z79.899 Other long term (current) drug therapy; Z98.891 History of uterine scar from previous surgery
CPT/HCPCS: 36415; 74176; 74176-26; 80053; 84703; 85025; 88304; 96365; 99283; 99284-25; A9270-GY; C1776; J0131; J0330; J0694; J1100; J1885; J2001; J2250; J2270; J2370; J2405; J2704; J3010; J3490; J7030; J7040; J7120

== ENCOUNTER 2022-09-22 19:54 | Emergency (ER) | payer BC ==
[2022-09-22] MEDS ORDERED: Sodium Chloride 0.9% 2.5 ML Syringe FLUSH PRN (21:36)
[2022-09-22] MEDS ORDERED: Sodium Chloride 0.9% 10 ML Syringe FLUSH PRN (21:36)
[2022-09-22] MEDS ORDERED: Sodium Chloride 0.9% 1,000 ML IV ONE (21:46)
[2022-09-22] MEDS ORDERED: Morphine 4 MG/ML Syringe IVPUSH ONE (22:05)
[2022-09-22 22:27] LABS: CARBON DIOXIDE,CO2 29.5 mmol/L (21.0-32.0); POTASSIUM,K 4.1 mmol/L (3.5-5.1)
[2022-09-22] MEDS ORDERED: Iopamidol 755 MG/ML 500 ML Multipack Bottle IVPUSH STA (23:07)
[2022-09-22] MEDS ORDERED: metroNIDAZOLE 250 MG Tab PO ONE (23:56)
[2022-09-22] MEDS ORDERED: Ciprofloxacin 500 MG Tab PO ONE (23:56)
== END 2022-09-23 00:09 | disposition home or self-care (01) ==
LOC: MW.ED 19:54
DX: K57.32 Diverticulitis of large intestine without perforation or abscess without bleeding (principal); E78.00 Pure hypercholesterolemia, unspecified; Z79.899 Other long term (current) drug therapy
CPT/HCPCS: 36415; 74177; 74177-26; 80053; 81003; 81025; 83605; 83690; 85025; 96361; 96374; 99284-25; A9270-GY; J2270; J7030; Q9967

== ENCOUNTER 2022-11-05 06:43 | Day surgery (SDC) | payer BC ==
[~2022-11-05 06:43] MED LIST: Lactated Ringers 1,000 ML IV SCH
[2022-11-05] MEDS ORDERED: Propofol 200 MG/20 ML SDV ONE ×3 (07:30→08:15)
== END 2022-11-05 08:50 | disposition home or self-care (01) ==
LOC: MW.SDS 06:43
PROVIDERS: ATTEND Surgery
DX: Z12.11 Encounter for screening for malignant neoplasm of colon (principal); K57.30 Diverticulosis of large intestine without perforation or abscess without bleeding; K64.8 Other hemorrhoids; J30.9 Allergic rhinitis, unspecified; E78.00 Pure hypercholesterolemia, unspecified; K21.9 Gastro-esophageal reflux disease without esophagitis; E66.01 Morbid (severe) obesity due to excess calories; M19.90 Unspecified osteoarthritis, unspecified site; D50.9 Iron deficiency anemia, unspecified; Z79.899 Other long term (current) drug therapy; Z98.890 Other specified postprocedural states; Z68.43 Body mass index [BMI] 50.0-59.9, adult; Z86.010 Personal history of colon polyps; Z87.19 Personal history of other diseases of the digestive system
CPT/HCPCS: 45380; J2704; J7120